=== PATIENT | male | born 1960 | race African-American/Black ===

== ENCOUNTER 2023-12-29 00:35 | Day surgery (SDC) | payer BC, SELFPAY ==
[2023-12-22 15:31] VITALS: BMI 27.4
--- NOTE | 2023-12-22 15:40 | PC.NURSE ---
Report to the Outpatient Waiting Room, entrance under the green pavilion located off [facility], at time _0600_ on date _[id number]_. Planned Procedure Time: _0730_. Time changes happen often and if your time is changed the preop area will call you the afternoon before. - You and your visitor will be asked to self-screen and do not enter if you have any COVID symptoms. - A mask is optional within the hospital at this time. Patients may have clear liquids (water, carbonated beverages, clear teas, apple juice) until 3 hours prior to surgery with a maximum of 20 ounces. - No food from midnight until time of surgery Take the following medications with a SIP of water the morning of surgery: ____Pain med if needed. DO NOT STOP ANY OF YOUR OTHER PRESCRIPTION MEDICATIONS PRIOR TO SURGERY ?EXCEPT THE FOLLOWING Medications to discontinue per physician Multivitamin Date to take last dgye__[id number] Please no make-up, nail serbian, hairspray, perfume, deodorant, or body powder the day of surgery. No jewelry (including any body piercings) or valuables the day of surgery, leave them at home. Please take a shower or bath the night before, or the morning of, surgery with an antibacterial soap. Wear comfortable, loose fitting clothing. - Jewelry must be removed prior to entering the operating room. Rings and piercings that are not removed may be cut off. - The hospital will not accept responsibility for valuables. - Please leave all valuables, including medications, at home the day of surgery. If you are going home after surgery, a licensed driver operator must drive you home. - NO public transportation without another adult if you receive anesthesia. - We recommend that an adult stay with you for 24 hours following discharge. - We also recommend that you do not drive, make important decision, drink alcoholic beverages, or take any drugs that were not prescribed by your health care provider for at least 24 hours after your discharge time. Follow any additional instructions given to you from your surgeon. If you or anyone in your household have experienced Covid symptoms in the past week, please notify your surgeon or the nurse liaison at the phone number below for possible testing. Telephone instructions given to _Carlosbijal__and asked if any additional questions and then verbalized understanding. Patient advised to call surgeon office or pre surgery nurse liaison [phone] if any additional questions.
[2023-12-29] VITALS (7 sets, daily range): BP systolic 91–124; BP diastolic 68–76; PULSE 63–86; RESP 12–16; TEMP 36.5–36.6; O2SAT 95–100
[2023-12-29] MEDS: LACTATED RINGERS 1,000 ML 30 ML IV CONT (07:00)
--- NOTE | 2023-12-29 07:13 | P.PNAN_ITS ---
Anes - Initial Pre Proc Eval Procedure: Operation Date: 12/29/23 07:30 Proposed Procedures p Trans Rectal Ultrasound Prostate Biopsy - Luis Dennis MD Date/Time: 12/29/23 07:13 Surgeon: Luis Dennis MD Pre Op Diagnosis: Elev PSA Patient Data Age: 63 Gender: M Height: 1.7 m Weight: 81.4 kg Last Vital Signs Temp 97.7 F 12/29/23 07:08 Pulse 86 12/29/23 07:08 Resp 14 12/29/23 07:08 BP 117/71 12/29/23 07:08 Pulse Ox 98 12/29/23 07:08 O2 Del Method Room Air 12/29/23 07:08 Allergies Allergy/AdvReac Type Severity Reaction Status Date / Time No Known Allergies Allergy Verified 12/29/23 07:12 Home Medications Medication Instructions Recorded Confirmed Type hydrocodone 10 mg-acetaminophen 1 tablet PO QID PRN Pain 12/22/23 12/22/23 History 325 mg tablet meloxicam 7.5 mg tablet 7.5 mg PO BID PRN Pain 12/22/23 12/22/23 History methocarbamol 750 mg tablet 750 mg PO BID PRN Pain 12/22/23 12/22/23 History multivitamin 1 tablet PO DAILY 12/22/23 12/22/23 History Patient hx anesthesia problems: none Family hx anesthesia problems: none Results Review: All pre-operative results and documents have been reviewed as part of the pre- operative evaluation. [facility] Social History Social History Smoking status: Former smoker Smokeless tobacco user: other Smoking end date: 11/22/20 Substance use type: marijuana Other substance usage details: every day. Living arrangements: with family Spiritual care concerns: No Anes - Eval Final PreProcedure Day of Procedure 12/29/23 07:13 Patient weight: normal Heart: regular rate and rhythm Lungs: clear to auscultation Airway: Mallampati scale class II Neurological: alert and oriented Last oral intake: >/= 8 hours ASA classification: II Emergent: no Anesthetic plan: proceed Anesthesia type and monitoring: general GIVS and standard monitoring Results Review: All pre-operative results and documents have been reviewed as part of the pre- operative evaluation. Informed Consent: The patient's anesthetic plan and its attendant risks and benefits were discussed with the patient/family/POA. Questions were solicited and answers provided to the satisfaction of the patient/family/POA.
--- NOTE | 2023-12-29 07:30 | WPDHPUPDATE1 ---
History and Physical Update Update Date/Time: 12/29/23 07:30 History and Physical has been reviewed, including an updated exam of the patient. There are NO changes in the patient's condition. Risks, benefits, and alternatives have been discussed and questions answered. Patient agrees to proceed with procedure. Proceed with TRUS and prostate biopsy
[2023-12-29] MEDS: ceFAZolin 2 GM/D5W 50 ML 2 GM/50 ML BAG IVPB (07:38)
--- NOTE | 2023-12-29 07:56 | W.PM.PROC2 ---
Procedure Note - Detailed Date of Procedure 12/29/23 Pre-op Diagnosis Elev PSA Post-op Diagnosis Same Procedure Performed Transrectal ultrasound with prostate biopsy Surgeon Luis Dennis MD Anesthesia MAC Description of Procedure Patient is taken to the operative suite. He has correctly identified. He was placed in lateral decubitus position. Transrectal sound was then performed. His volume was 37 cc. Standard 12 core biopsy was then performed. Patient tolerated procedure well without any complications and was taken recovery stable condition. He will call for results in 1 week. This completes dictation on this patient. Please send a copy of op note to my office Estimated Blood Loss 0 Drains No Packing No Pathology Yes Complications No immediate complications Condition Stable Disposition PACU
== END 2023-12-29 09:40 | disposition home or self-care (01) ==
PROVIDERS: PCP Internal Medicine; Visit Provider Urology
PROC: (CPT 55700; principal; 2023-12-29 07:30)
DX: R97.20 Elevated prostate specific antigen [PSA] (principal); Z87.891 Personal history of nicotine dependence; F12.90 Cannabis use, unspecified, uncomplicated
CPT/HCPCS: 76872; 55700; G0416; J0690; J2250; J2704; J3010; J7120

== ENCOUNTER 2024-01-22 09:00 | Outpatient (RCR) | payer BC, SELFPAY ==
--- NOTE | 2023-12-17 14:14 | OPREHPOC ---
Outpatient Therapy Plan of Care This is a Multidisciplinary Plan of Care that may contain components documented by all disciplines (PT, OT, and ST.) PT Problem 1 PT Problem #1 Knowledge Deficit PT Goal 1 Goal *indep with HEP *use of correct back position with exercises Target Visit 8 PT Problem 2 PT Problem #2 Pain PT Goal 1 Goal 1* pt report pain rating at worst of 4/10 2* Oswetry self assessment rating of 20% limitation in activity Target Visit 8 PT Problem 3 PT Problem #3 Impaired Functional Mobil PT Goal 1 Goal 1* 2 minute walking test distance of 525' 2* in sitting, able to put L shoe on without issues Target Visit 8 PT Problem 4 PT Problem #4 Impaired Flexibility PT Goal 1 Goal increase flexibility of trunk/hips: to improve mobility 1*hamstring length with R supine SLR to 55' increase anterior hip-quad length with prone knee flexion 2* R 105' 3* L 105' Target Visit 8
--- NOTE | 2023-12-17 14:14 | PTOPEVAL1 ---
Assessment and note entered by Juliane Zambrano, PT Evaluation Information Assessment Status Evaluation Diagnosis low back pain Onset Aug 2023 Subjective Information chronic back pain, gradual increase in pain, without trauma or injury to back; history of lumbar fusion in 2020; have had PT here in the past, but not recall what they did; another facility had PT up to about 2-3 weeks ago- leg exercises, stretches and weight machines and it stopped; had recent xray of L hip- not know report yet had to have an MRI of his prostate due to numbers high and going to have colonoscopy Activity: work as blood bank custodian, 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 He has issues with chronic back pain, in 2020 had lumbar fusion. And is currently under the care of pain management. 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 And has problems with walking and putting on his L shoe. Recently had an MRI and work up for prostate and to have a colonoscopy. With the evaluation: 2 minute walking test distance of 450' with report of increase back pain ; supine R and L hip flexion increase his pain; tightness over both hamstrings and anterior hip- quad muscles; with maximum lifting test with bilateral UE lift from waist to floor height is 35#. Skilled PT services are indicated for aquatic and land therapeutic exercises to increase trunk and hip strength and flexibility with education for home exercises, posture and pain control. Plan of Care Interventions Aquatic Therapy,Hot Pack/Cold Pack,Manual Therapy, Mecha
--- NOTE | 2023-12-17 16:36 | PCPTNOTE ---
pt was 10 minutes late for initial eval appt.
--- NOTE | 2023-12-22 16:29 | PCPTNOTE ---
Called pt about NS appt today and was unable to leave a message on his voice mail
--- NOTE | 2024-02-18 14:25 | PCPTNOTE ---
pt called and canceled today's reevaluation. Stated he was going to get back injections and would return after receiving them for more therapy.
--- NOTE | 2024-03-08 10:01 | PCPTNOTE ---
PHYSICAL THERAPY DISCHARGE 03-08-24 Raheem has received 7 PT sessions, from December 16 to January 21. He did not show for one appointment. On February 17, he called and canceled his reevaluation appt, stated he was getting injections and wanted to hold on PT for now. No further contact from pt, therefore he will be discharged from PT at this time. The goals were not assessed.
== END 2024-03-07 11:26 | disposition home or self-care (01) ==
LOC: ANHPT 09:00
PROVIDERS: PCP Internal Medicine; Visit Provider Pain Medicine Interventional Pain Medicine
DX: M54.50 Low back pain, unspecified (principal)
CPT/HCPCS: 97012; 97110; 97113; 97161; 97530